=== PATIENT | female | born 1955 | race African-American/Black ===

== ENCOUNTER 2022-03-06 11:09 | Outpatient (CLI) | payer MEDICARE, MEDICAID, SELFPAY | END 2022-03-06 11:10 | disposition home or self-care (01) | LOC: ANHAUDIO 11:12 | DX: H91.93 Unspecified hearing loss, bilateral (principal) | CPT/HCPCS: 99199 ==

== ENCOUNTER 2022-07-24 09:02 | Outpatient (CLI) | payer MEDICARE, MEDICAID, SELFPAY | END 2022-07-24 09:03 | disposition home or self-care (01) | LOC: ANHAUDIO 09:05 | DX: H91.93 Unspecified hearing loss, bilateral (principal) | CPT/HCPCS: 92555; 92567 ==